=== PATIENT | female | born 2000 | race Two or more races ===

== ENCOUNTER 2023-06-14 23:25 | Emergency (ER) | payer MEDICAID, OTHER ==
[~2023-06-14] VITALS: Ht 152.4 cm; Wt 60.0 kg
[2023-06-15] MEDS ORDERED: IPRATROPIUM BROM 0.5 MG/2.5ML INH SOL NEB ONE
[2023-06-15] MEDS ORDERED: DexAMETHasone SOD PHOS 10MG/1ML VIAL INJ IM ONE
[2023-06-15] MEDS ORDERED: ALBUTEROL SULF 2.5 MG/0.5ML(0.5%) NEB SOLN NEB ONE
[2023-06-15] MEDS ORDERED: LORA-622 PO (02:00)
[2023-06-15] MEDS ORDERED: ALBU108A5 IN (02:00)
[2023-06-15] MEDS ORDERED: ACETAMINOPHEN/CODEINE#3 (300/30mg) TAB PO ONE (02:00)
[2023-06-15] MEDS ORDERED: ACET500T58 PO (02:00)
[2023-06-15 02:13] VITALS: BP 125/75; PULSE 75; RESP 17; TEMP 97.8; O2SAT 96
== END 2023-06-15 02:17 | disposition home or self-care (01) ==
LOC: ER 23:25
DX: J45.909 Unspecified asthma, uncomplicated (principal); J06.9 Acute upper respiratory infection, unspecified; B97.89 Other viral agents as the cause of diseases classified elsewhere; R07.89 Other chest pain
CPT/HCPCS: 71045; 94640; 96372; 99283; J1100; J7644

== ENCOUNTER 2023-08-04 18:19 | Emergency (ER) | payer MEDICAID ==
[~2023-08-04] VITALS: Ht 152.4 cm; Wt 62.1 kg
[~2023-08-04 18:19] MED LIST: ACET500T58 PO; ALBU108A5 IN; LORA-622 PO
[2023-08-04] MEDS: ONDANSETRON ODT 4 MG TAB PO ONE (19:49)
[2023-08-04] MEDS: DexAMETHasone SOD PHOS 10MG/1ML VIAL INJ IM ONE (19:49)
[2023-08-04] MEDS: OXYMETAZOLINE HCL 0.05 % NASAL SPRAY 15ML EACHNOSTRI ONE (19:51)
[2023-08-04] MEDS: ALBUTEROL SULF 2.5 MG/0.5ML(0.5%) NEB SOLN NEB ONE (19:54)
[2023-08-04] MEDS: IPRATROPIUM BROM 0.5 MG/2.5ML INH SOL NEB ONE (19:54)
[2023-08-04] MEDS: ACETAMINOPHEN 500 MG TAB PO ONE (20:12)
[2023-08-04] MEDS ORDERED: LORA10CA PO (20:48)
[2023-08-04] MEDS ORDERED: BENZ100C97 PO (20:48)
[2023-08-04] MEDS ORDERED: OXYM-15 (20:48)
[2023-08-04 21:00] VITALS: BP 120/76; PULSE 110; RESP 18; TEMP 99.5; O2SAT 98
== END 2023-08-04 21:02 | disposition home or self-care (01) ==
LOC: ER 18:19
DX: J39.8 Other specified diseases of upper respiratory tract (principal); J45.909 Unspecified asthma, uncomplicated; R53.1 Weakness; R50.9 Fever, unspecified; R53.83 Other fatigue
CPT/HCPCS: 71046; 94640; 96372; 99283; J1100; J7644; Q0162

== ENCOUNTER 2023-08-05 23:50 | Emergency (ER) | payer MEDICAID ==
[~2023-08-05] VITALS: Ht 152.4 cm; Wt 64.0 kg
[~2023-08-05 23:50] MED LIST changes: +BENZ100C97 PO; +LORA10CA PO; +OXYM-15
[2023-08-06] MEDS ORDERED: ONDANSETRON ODT 4 MG TAB PO ONE
[2023-08-06] MEDS: IBUPROFEN 800 MG TAB PO ONE (00:01)
[2023-08-06 00:23] LABS: Basophils # (auto) 0 10 ^3/uL (0-0.2); Basophils % (auto) 0.3 % (0.0-2.0); Eosinophils # (auto) 0 10 ^3/uL (0-0.8); Eosinophils % (auto) 0.2 % (0.0-7.0); Hematocrit 44.3 % (36.0-46.0); Hemoglobin 15.3 g/dL (12.2-16.2); Lymphocytes # (auto) 1.1 10 ^3/uL (0.4-5.4); Lymphocytes % (auto) 14.3 % (10.0-50.0); Mean Corpuscular Hemoglobin 30.9 pg (28.0-32.0); Mean Corpuscular Hgb Conc. 34.6 g/dL (32.0-36.0); Mean Corpuscular Volume 89.3 fL (80.0-100.0); Monocytes # (auto) 0.6 10 ^3/uL (0-1.3); Monocytes % (auto) 7.7 % (0.0-12.0); Neutrophils # (auto) 5.8 10 ^3/uL (1.6-8.6); Neutrophils % (auto) 77.5 % (37.0-80.0); Red Blood Cells 4.96 10^6/uL (4.0-5.20); Red Cell Distribution Width 12.7 % (11.8-14.3); White Blood Cell 7.5 10^3/uL (4.4-10.8)
[2023-08-06 00:39] LABS: Urine Bacteria FEW /hpf (None Seen); Urine Blood Negative /uL (Negative); Urine Clarity Clear (Clear); Urine Color Yellow (Yellow); Urine Mucus FEW (None Seen); Urine Protein, UAD Negative (Negative); Urine Specific Gravity 1.015 (1.001-1.035); Urine Urobilinogen Normal (Negative); Urine WBC 8 /hpf (0 - 5); Urine pH 5.5 (5.0-8.0)
[2023-08-06 00:41] LABS: Alanine Aminotransferase 130 U/L (7-40); Albumin 4.5 g/dL (3.2-4.8); Alkaline Phosphatase 149 U/L (46-116); Anion Gap 7 (5-15); Aspartate Aminotransferase 110 U/L (13-40); BUN/Creatinine Ratio 8.8 (10.0-20.0); Bilirubin, Total 0.5 mg/dL (0.2-1.0); Blood Urea Nitrogen 7 mg/dL (9-23); Carbon Dioxide 21 mmol/L (20-30); Chloride 108 mmol/L (98-107); Glucose 111 mg/dL (74-106); Lipase 47 U/L (12-53); Potassium 3.5 mmol/L (3.5-5.1); Sodium 136 mmol/L (136-145); Total Protein 7.6 g/dL (5.7-8.2)
[2023-08-06 00:56] LABS: COVID19 ANTIGEN SOFIA FIA NEGATIVE (NEGATIVE)
[2023-08-06 00:57] LABS: Rapid Influenza A Negative (Negative); Rapid Influenza B Positive (Negative)
[2023-08-06] MEDS ORDERED: BENZ200C64 PO (01:01)
[2023-08-06] MEDS ORDERED: PRED20TA2 PO (01:01)
[2023-08-06] MEDS ORDERED: ZOFR4T PO (01:01)
[2023-08-06] MEDS ORDERED: CEPH500T PO (01:01)
[2023-08-06] MEDS ORDERED: ALBUAER3 IN (01:01)
[2023-08-06] MEDS: ALBUTEROL SULF 2.5 MG/0.5ML(0.5%) NEB SOLN NEB ONE (01:13)
[2023-08-06] MEDS: IPRATROPIUM BROM 0.5 MG/2.5ML INH SOL NEB ONE (01:13)
[2023-08-06] MEDS: SODIUM CHLORIDE 0.9% 1,000 ML IV ONE ×2 (01:27→02:13)
[2023-08-06] MEDS: ONDANSETRON HCL 4 MG/2 ML VIAL IV ONE (01:31)
[2023-08-06] MEDS: DexAMETHasone SOD PHOS 10MG/1ML VIAL INJ IM ONE (01:32)
[2023-08-06 01:42] VITALS: PULSE 148; RESP 16; O2SAT 100
[2023-08-06] MEDS: LORazepam 0.5 MG TAB PO ONE (01:50)
[2023-08-06 02:50] VITALS: BP 105/58; PULSE 138; RESP 16; TEMP 98.7; O2SAT 100
== END 2023-08-06 02:56 | disposition home or self-care (01) ==
LOC: ER 23:50
DX: J45.909 Unspecified asthma, uncomplicated (principal); J10.1 Influenza due to other identified influenza virus with other respiratory manifestations; N39.0 Urinary tract infection, site not specified; R11.2 Nausea with vomiting, unspecified; R50.9 Fever, unspecified; R74.8 Abnormal levels of other serum enzymes; Z20.822 Contact with and (suspected) exposure to COVID-19; Z79.899 Other long term (current) drug therapy
CPT/HCPCS: 36415; 80053; 81001; 83690; 85025; 87426; 87804; 93005; 94640; 96361; 96374; 99284; J2405; J7030; J7644